=== PATIENT | female | born 1960 | race Caucasian/White ===

== ENCOUNTER 2018-10-11 08:27 | Outpatient (CLI) | payer OTHER ==
[2018-10-11] MEDS ORDERED: AMBIEN10 MG PO (12:02)
[2018-10-11] MEDS ORDERED: LOPRESSOR25 MG PO (12:02)
[2018-10-11] MEDS ORDERED: COZAAR50 MG PO (12:02)
[2018-10-11] MEDS ORDERED: HYDROCHLOROTH12.5 M1 PO (12:03)
[2018-10-12] MEDS ORDERED: METROPOLOL PO (09:47)
== END 2018-10-11 13:28 | disposition home or self-care (01) ==
LOC: LAB 08:27
DX: Z01.818 Encounter for other preprocedural examination (principal); K80.20 Calculus of gallbladder without cholecystitis without obstruction

== ENCOUNTER 2018-10-17 05:50 | Day surgery (SDC) | payer OTHER ==
[~2018-10-17 05:50] MED LIST: AMBIEN10 MG PO; COZAAR50 MG PO; HYDROCHLOROTH12.5 M1 PO; LOPRESSOR25 MG PO; METROPOLOL PO
[2018-10-17] MEDS ORDERED: ULTRACET PO ×2 (13:27→15:02)
== END 2018-10-17 16:20 | disposition home or self-care (01) ==
LOC: CIR.AMB 05:50
DX: K80.10 Calculus of gallbladder with chronic cholecystitis without obstruction (principal)